=== PATIENT | female | born 2000 | race Hispanic/Latino ===

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

== ENCOUNTER 2020-05-25 19:50 | Emergency (ER) | payer OTHER ==
[~2020-05-25] VITALS: Ht 165.1 cm; Wt 113.4 kg
--- NOTE | 2020-05-25 20:13 | ER.PDOC ---
General Chief Complaint: Requesting Medical Care Stated Complaint: CHEST PAIN,SOB Time seen by MD: 20:13 Source: patient Exam Limitations: no limitations History of Present Illness Initial Comments Patient presents for evaluation of chest pain and SOB. The pain is left sided and dull, currently 5/10 severity. She has hx of anxiety and resumed her meds with no improvement. She reports that this feel different from prior panic attacks. No recent travel, no leg pain or swelling. No fever or chills. no cough. She does have uncle with hx of DVT.. Pain improves with motrin. Pain is reproducible. No trauma Severity/Quality: moderate Radiation: no radiation Activities at Onset: none Prior CP/Workup: Non-Cardiac Modifying Factors: breathing Nitro Today/Relief: No Nitro Taken Today Aspirin Today: No Aspirin Today Associated Symptoms: shortness of breath Prior symptoms/Treatment: Similar symptoms previous Allergies: Coded Allergies: amoxicillin (Verified Allergy, Severe, Rash, 09/28/16) morphine (Verified Allergy, Severe, Rash, 09/28/16) Home Meds No Active Prescriptions or Reported Meds Past Medical History Medical History: no pertinent history Surgical History: no surgical history Social History Smoking: cigarettes Alcohol Use: occassionally Drug Use: marijuana Reviewed Nursing Reviewed: Vital Signs, Abn. Noted, Nursing Assessment Constitutional: no symptoms reported EENTM: no symptoms reported Respiratory: shortness of breath Cardiovascular: chest pain Gastrointestinal: no symptoms reported Musculoskeletal: no symptoms reported Skin: no symptoms reported Psychiatric/Neurological: no symptoms reported Physical Exam HEENT: PERRL/EOMI, Normal ENT Inspection, TMs Normal, Pharynx Normal Neck: Non-Tender, Full Range of Motion, Supple, Normal Inspection Respiratory: chest non-tender, lungs clear, normal breath sounds, no respiratory distress, no accessory muscle use Cardiovascular: Normal Peripheral Pulses, Regular Rate, Rhythm, No Edema, No JVD, No Murmur, Other (reprocible left chest pain. 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, No Motor/Sensory Deficits, Alert, Normal Mood/Affect, Oriented x 3 Skin: Normal Color, Warm/Dry Results/Orders Results/Orders Orders - ZAFAR LOREDO MD Cbc With Auto Diff (05/25/20 20:21) Basic Metabolic Panel (05/25/20 20:21) Troponin I (05/25/20 20:21) D-Dimer (05/25/20 20:21) Ekg-Routine (05/25/20 20:21) Probnp B-Type Associate Financial Analyst (05/25/20 20:21) Xr Chest 1v (05/25/20 20:21) Ketorolac Tromethamine (Toradol) (05/25/20 20:21) Ketorolac Tromethamine (Toradol) (05/25/20 20:32) Cta Chest (05/25/20 21:18) Vital Signs Date Time Temp Pulse Resp B/P (MAP) Pulse Ox O2 Delivery O2 Flow Rate FiO2 05/25/20 20:16 98.2 95 22 98 05/25/20 20:16 98.2 95 22 05/25/20 20:16 98.2 95 22 98 Administered Medications Medications (Trade) Dose Ordered Sig/Krystle Route PRN Reason Start Time Stop Time Status Last Admin Dose Admin Ketorolac Tromethamine (Toradol) 30 mg STAT STAT IV 05/25/20 20:21 12 20:26 DC 05/25/20 20:44 30 MG Laboratory Tests Test 05/25/20 20:37 White Blood Count 8.1 10^3/uL (4.5-12.5) Red Blood Count 4.85 10^6/uL (4.00-5.20) Hemoglobin 15.4 g/dL (12.4-14.8) H Hematocrit 44.5 % (36.0-46.0) Mean Corpuscular Volume 91.8 fL (78-100) Mean Corpuscular Hemoglobin 31.8 pg (26-34) Mean Corpuscular Hemoglobin Concent 34.6 g/dL (33-36.5) Red Cell Distribution Width 11.6 % (11.5-14.5) Platelet Count 328 10^3/uL (150-400) Mean Platelet Volume 9.3 fL (7.8-11.0) Neutrophils (%) (Auto) 53.4 % (41.0-85.0) Lymphocytes (%) (Auto) 33.0 % (24.0-44.0) Monocytes (%) (Auto) 9.3 % (5.0-12.0) Neutrophils # (Auto) 4.3 10^3/uL (1.8-8.0) Lymphocytes # (Auto) 2.67 10^3/uL1 (1.2-5.2) Monocytes # (Auto) 0.8 10^3/uL (0.0-0.4) H Absolute Immature Granulocyte (auto 0.02 10^3 u/L (0-2) Absolute Eosinophils (auto) 0.3 10^3/uL (0.0-0.2) H Immature Granulocytes % 0.20 % (0.00-0.50) Eosinophils % 3.6 % (0.0-5.0) Basophils % 0.5 % (0.0-0.2) H Basophils # 0.0 10^3/uL (0.0-0.1) D-Dimer 0.76 mg/L (0.19-0.49) *H Sodium Level 140 mmol/L (132-145) Potassium Level 3.8 mmol/L (3.6-5.2) Chloride Level 105.0 mmol/L (96-109) Carbon Dioxide Level 26.8 mmol/L (20.0-32) Glucose Level 87 mg/dL (70-110) Blood Urea Nitrogen 13 mg/dL (7-18) Creatinine 0.77 mg/dL (0.59-1.40) Calcium Level 8.8 mg/dL (8.4-10.5) Anion Gap 12.0 Estimated GFR () 115.6 (>/=60) Est GFR (CKD-EPI)(Non-Afr Swazi) 95.6 (>/=60) BUN/Creatinine Ratio 16.0 Troponin I < 0.02 ng/mL (0.00-0.05) Pro-B-Type Natriuretic Peptide 5 pg/mL (0-125) Progress Progress Patient feels improved on repeat evaluation. Other than elevated dimer, labs OK. CTA negative for PE or other acute process. She will continue NSaids for symptomatic relief. If she has any new or worsening sx, she will return to ED, otherwise follow up with PCP in 2-3 days EKG/XRAY/CT/US EKG: NSR ER DEPART Departure Time of Disposition: 23:01 Disposition: 01 HOME, SELF-CARE Impression: Primary Impression: Chest pain Condition: Stable Referrals: PCP,UNKNOWN (PCP) PRIMARY CARE PROVIDER Scripts No Active Prescriptions or Reported Meds Duration or Time Spent with Pa: 15m ZAFAR LOREDO MD May 25, 2020 20:13
[2020-05-25 20:16] VITALS: BP 120/65
[2020-05-25] MEDS ORDERED: TORADOL IV STA (20:21)
[2020-05-25] MEDS ORDERED: TORADOL ONE (20:32)
[2020-05-25 20:46] LABS: BASOPHIL % 0.5 % (0.0-0.2); EOSINOPHIL # 0.3 10^3/uL (0.0-0.2); EOSINOPHIL % 3.6 % (0.0-5.0); LYMPHOCYTES # 2.67 10^3/uL1 (1.2-5.2); MEAN CORP HGB 31.8 pg (26-34); MONOCYTES # 0.8 10^3/uL (0.0-0.4); MONOCYTES % 9.3 % (5.0-12.0); NEUTROPHIL # 4.3 10^3/uL (1.8-8.0); NEUTROPHILS % 53.4 % (41.0-85.0); PLATELET COUNT 328 10^3/uL (150-400); RED CELL DISTRIBUTION WIDTH 11.6 % (11.5-14.5)
--- NOTE | 2020-05-25 20:50 | PCM.EKG ---
[facility] Test Date: 2020-05-25 Test Time: 20:46:56 Pat Name: KENJI GARCIA Department: Room: Gender: F [employer]: COBY : 2000 Requested By: ZAFAR LOREDO Order Number: [id number] Reading MD: Measurements Intervals [place] Rate: 95 P: 53 NV: 135 QRS: 13 QRSD: 88 T: 38 QT: 336 QTc: 423 Interpretive Statements Sinus rhythm Baseline wander in lead(s) I,III,aVL,V2,V3,V5 No previous ECG available for comparison Please click the below link to view image of tracing.
--- NOTE | 2020-05-25 20:52 | DIREP ---
PROCEDURE:CHEST 1 VIEW COMPARISON:None. INDICATIONS:chest pain FINDINGS: LUNGS/PLEURA:No significant pulmonary parenchymal abnormalities. No effusions. VASCULATURE:Normal. Unremarkable pulmonary vasculature. CARDIAC:Normal. No cardiac silhouette abnormality or cardiomegaly. MEDIASTINUM:Normal. No visible mass or adenopathy. BONES:Normal. No fracture or visible bony lesion. OTHER:Negative. CONCLUSION:Normal chest examination. Dictated by: Rios Newman M.D. on 05/25/2020 at 08:50 PM
[2020-05-25 21:07] LABS: CALCIUM 8.8 mg/dL (8.4-10.5); CARBON DIOXIDE 26.8 mmol/L (20.0-32); GLUCOSE 87 mg/dL (70-110)
--- NOTE | 2020-05-25 22:25 | NUR ---
CT PATIENT BACK FROM CT AT THIS TIME, RECONNECTED TO BEDSIDE MONITOR.
--- NOTE | 2020-05-25 22:49 | DIREP ---
PROCEDURE:CT PULMONARY ANGIOGRAM TECHNIQUE:Following the intravenous administration of contrast material, axial cuts were obtained through the chest. Sagittal and coronal MIP post-processing reconstructions are provided. Satisfactory pulmonary arterial contrast opacification was achieved. The images were viewed at lung and soft tissue settings. COMPARISON:[facility], , XRAY CHEST SINGLE VW, 05/25/2020, 08:40 PM. INDICATIONS:chest pain FINDINGS: PULMONARY ARTERIES:Patent. LUNGS:No significant pulmonary parenchymal abnormalities. Mild atelectasis dependent right lower lobe. CARDIAC:Normal size heart and normal pulmonary vascularity. THYROID:Normal. THORACIC AORTA:Normal. MEDIASTINUM:Normal. PLEURA:Normal. BONES:Normal. OTHER:No additional findings. CONCLUSION: 1. Negative for pulmonary embolism. 2. Mild atelectasis in the right lung. Otherwise clear lungs. Dictated by: Brandon Ritchie M.D. on 05/25/2020 at 10:44 PM
== END 2020-05-25 23:35 | disposition home or self-care (01) ==
LOC: ER 20:00
DX: R07.9 Chest pain, unspecified (principal); R06.02 Shortness of breath; F17.210 Nicotine dependence, cigarettes, uncomplicated; Z79.1 Long term (current) use of non-steroidal anti-inflammatories (NSAID); Z88.5 Allergy status to narcotic agent; Z88.0 Allergy status to penicillin
CPT/HCPCS: 36415; 71045; 71275; 80048; 83880; 84484; 85025; 85379; 93005; 96374; 99285; J1885; Q9965

== ENCOUNTER 2020-06-27 20:31 | Emergency (ER) | payer OTHER ==
[~2020-06-27] VITALS: Ht 165.1 cm; Wt 104.3 kg
[2020-06-27 20:37] VITALS: BP 116/67
[2020-06-27 20:56] LABS: BASOPHIL # 0.1 10^3/uL (0.0-0.1); BASOPHIL % 0.6 % (0.0-0.2); EOSINOPHIL # 0.4 10^3/uL (0.0-0.2); EOSINOPHIL % 3.6 % (0.0-5.0); LYMPHOCYTES # 3.28 10^3/uL1 (1.2-5.2); LYMPHOCYTES % 34.2 % (24.0-44.0); MEAN CORP HGB 31.9 pg (26-34); MONOCYTES # 0.8 10^3/uL (0.0-0.4); MONOCYTES % 8.6 % (5.0-12.0); NEUTROPHIL # 5.1 10^3/uL (1.8-8.0); NEUTROPHILS % 52.9 % (41.0-85.0); PLATELET COUNT 333 10^3/uL (150-400); RED CELL DISTRIBUTION WIDTH 11.6 % (11.5-14.5)
--- NOTE | 2020-06-27 21:04 | DIREP ---
PROCEDURE:CHEST 1 VIEW COMPARISON:[facility], CR, XRAY CHEST SINGLE VW, 05/25/2020, 08:40 PM. INDICATIONS:Chest pain FINDINGS: LUNGS/PLEURA:No significant pulmonary parenchymal abnormalities. No effusions. VASCULATURE:Normal. Unremarkable pulmonary vasculature. CARDIAC:Normal. No cardiac silhouette abnormality or cardiomegaly. MEDIASTINUM:Normal. No visible mass or adenopathy. BONES:Normal. No fracture or visible bony lesion. OTHER:Negative. CONCLUSION:No acute disease. No significant change has occurred. Dictated by: Vamshi Saucedo MD on 06/27/2020 at 09:01 PM
--- NOTE | 2020-06-27 21:24 | NUR ---
D-DIMER D-DIMER 1.17, EDP NOTIFIED
[2020-06-27] MEDS ORDERED: TORADOL ONE (21:25)
[2020-06-27] MEDS: TORADOL IM STA (21:29)
--- NOTE | 2020-06-27 21:32 | ER.PDOC ---
General Chief Complaint: Chest Pain-Non Cardiac Nature Stated Complaint: CHEST PAIN Time seen by MD: 21:27 Source: patient Exam Limitations: no limitations History of Present Illness Initial Comments Chest pain for about 1 Month, patient was seen here about a Month ago for same and had a negative work up including CTA Chest. Pain is located in the mid ster num and does not radiate. Timing/Duration: intermittent Severity/Quality: sharp Radiation: no radiation Activities at Onset: none Prior CP/Workup: No Prior Chest Pain Nitro Today/Relief: No Nitro Taken Today Aspirin Today: No Aspirin Today Associated Symptoms: denies symptoms Prior symptoms/Treatment: Similar symptoms previous, Recenly Seen, Treated by Doctor Allergies: Coded Allergies: amoxicillin (Verified Allergy, Severe, Rash, 09/28/16) morphine (Verified Allergy, Severe, Rash, 09/28/16) Home Meds No Active Prescriptions or Reported Meds Past Medical History Medical History: no pertinent history Surgical History: no surgical history Family History Significant Family History: no pertinent family hx Social History Alcohol Use: occassionally Drug Use: none Constitutional: no symptoms reported EENTM: no symptoms reported Respiratory: no symptoms reported Cardiovascular: see HPI Gastrointestinal: no symptoms reported Genitourinary: no symptoms reported All Other Systems: Reviewed and Negative Physical Exam General Appearance: No Apparent Distress, WD/WN Neck: Non-Tender, Full Range of Motion, Supple, Normal Inspection Respiratory: chest non-tender, lungs clear, normal breath sounds, no respiratory distress, no accessory muscle use, other (tenderness mid sternum.) Cardiovascular: Normal Peripheral Pulses, Regular Rate, Rhythm, No Edema, No Gallop, No JVD, No Murmur Gastrointestinal: Normal Bowel Sounds, No Organomegaly, No Pulsatile Mass, Non Tender, Soft Extremities: Normal Range of Motion, Non-Tender, Normal Inspection, No Pedal Edema, No Calf Tenderness, Normal Capillary Refill 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, No Motor/Sensory Deficits, Alert, Normal Mood/Affect, Oriented x 3 Skin: Normal Color, Warm/Dry Lymphatic: No Adenopathy Results/Orders Results/Orders Orders - GURPREET GUADALUPE MD Cbc With Auto Diff (06/27/20 20:41) Creatine Kinase (06/27/20 20:41) Troponin I (06/27/20 20:41) D-Dimer (06/27/20 20:41) Xr Chest 1v (06/27/20 20:41) Ekg-Routine (06/27/20 20:41) Basic Metabolic Panel (06/27/20 20:41) Ketorolac Tromethamine (Toradol) (06/27/20 21:12) Ketorolac Tromethamine (Toradol) (06/27/20 21:25) Vital Signs Date Time Temp Pulse Resp B/P (MAP) Pulse Ox O2 Delivery O2 Flow Rate FiO2 06/27/20 21:40 98.1 94 16 120/79 (93) 97 Room Air 06/27/20 20:37 98.1 102 16 116/67 (83) 96 Room Air 06/27/20 20:37 98.1 102 16 06/27/20 20:37 98.1 102 16 96 Administered Medications Medications (Trade) Dose Ordered Sig/Krystle Route PRN Reason Start Time Stop Time Status Last Admin Dose Admin Ketorolac Tromethamine (Toradol) 60 mg STAT STAT IM 06/27/20 21:12 06/27/20 21:13 DC 06/27/20 21:29 60 MG Laboratory Tests Test 06/27/20 20:50 White Blood Count 9.6 10^3/uL (4.5-12.5) Red Blood Count 4.73 10^6/uL (4.00-5.20) Hemoglobin 15.1 g/dL (12.4-14.8) H Hematocrit 42.8 % (36.0-46.0) Mean Corpuscular Volume 90.5 fL (78-100) Mean Corpuscular Hemoglobin 31.9 pg (26-34) Mean Corpuscular Hemoglobin Concent 35.3 g/dL (33-36.5) Red Cell Distribution Width 11.6 % (11.5-14.5) Platelet Count 333 10^3/uL (150-400) Mean Platelet Volume 9.2 fL (7.8-11.0) Neutrophils (%) (Auto) 52.9 % (41.0-85.0) Lymphocytes (%) (Auto) 34.2 % (24.0-44.0) Monocytes (%) (Auto) 8.6 % (5.0-12.0) Neutrophils # (Auto) 5.1 10^3/uL (1.8-8.0) Lymphocytes # (Auto) 3.28 10^3/uL1 (1.2-5.2) Monocytes # (Auto) 0.8 10^3/uL (0.0-0.4) H Absolute Immature Granulocyte (auto 0.01 10^3 u/L (0-2) Absolute Eosinophils (auto) 0.4 10^3/uL (0.0-0.2) H Immature Granulocytes % 0.10 % (0.00-0.50) Eosinophils % 3.6 % (0.0-5.0) Basophils % 0.6 % (0.0-0.2) H Basophils # 0.1 10^3/uL (0.0-0.1) D-Dimer 1.17 mg/L (0.19-0.49) *H Sodium Level 143 mmol/L (132-145) Potassium Level 3.6 mmol/L (3.6-5.2) Chloride Level 105.0 mmol/L (96-109) Carbon Dioxide Level 26.0 mmol/L (20.0-32) Glucose Level 98 mg/dL (70-110) Blood Urea Nitrogen 13 mg/dL (7-18) Creatinine 0.99 mg/dL (0.59-1.40) Calcium Level 10.3 mg/dL (8.4-10.5) Anion Gap 15.6 Estimated GFR () 86.5 (>/=60) Est GFR (CKD-EPI)(Non-Afr [place]ican) 71.5 (>/=60) BUN/Creatinine Ratio 13.0 Total Creatine Kinase 115 U/L (26-192) Troponin I 0.02 ng/mL (0.00-0.05) Progress Progress D dimer elevated but patient had a CTA chest 1 Month ago. Pain resolved with Toradol. Rest of labs are unremarkable. EKG/XRAY/CT/US EKG: NSR, no ST T wave changes EKG Comments: rate 94, normal axis XRAY: chest (No active disease) ER DEPART Departure Time of Disposition: 22:27 Disposition: 01 HOME, SELF-CARE Impression: Primary Impression: Tenderness of chest wall Condition: Improved Referrals: PCP,UNKNOWN (PCP) PRIMARY CARE PROVIDER Additional Instructions: Diclofenac F/U with your PCP in 2-3 days Return to ED if worsening or concerns Scripts No Active Prescriptions or Reported Meds Duration or Time Spent with Pa: 60 min GURPREET GUADALUPE MD Jun 27, 2020 21:32
[2020-06-27 21:40] VITALS: BP 120/79
[2020-06-27 21:57] LABS: CALCIUM 10.3 mg/dL (8.4-10.5)
--- NOTE | 2020-06-30 13:18 | PCM.EKG ---
[facility] Test Date: 2020-06-27 Test Time: 20:40:28 Pat Name: KENJI GARCIA Department: Room: Gender: F Medical Equipment Sales: GARRY : 2000 Requested By: GURPREET GUADALUPE Order Number: [id number] Reading MD: Measurements Intervals [place] Rate: 94 P: 43 ND: 137 QRS: 16 QRSD: 89 T: 18 QT: 352 QTc: 441 Interpretive Statements Sinus rhythm Compared to ECG 05/25/2020 20:46:56 No significant changes Please click the below link to view image of tracing.
== END 2020-06-27 22:47 | disposition home or self-care (01) ==
LOC: ER 20:31
DX: R07.89 Other chest pain (principal); Z79.1 Long term (current) use of non-steroidal anti-inflammatories (NSAID); Z88.0 Allergy status to penicillin; Z88.5 Allergy status to narcotic agent
CPT/HCPCS: 36415; 71045; 80048; 82550; 84484; 85025; 85379; 93005; 96372; 99285; J1885

== ENCOUNTER 2020-09-13 21:13 | Emergency (ER) | payer OTHER ==
[~2020-09-13] VITALS: Ht 165.1 cm; Wt 124.7 kg
[2020-09-13 21:48] VITALS: BP 151/68
--- NOTE | 2020-09-13 21:57 | ER.PDOC ---
General Chief Complaint: Requesting Medical Care Stated Complaint: LEO IN ABDOMINAL WALL TRAVEL OUT OF US: No Time seen by MD: 21:54 Source: patient Exam Limitations: no limitations History of Present Illness Initial Comments Leo buried in left abdominal wall this evening. She is complaining of pain. Severity: moderate Associated Symptoms: denies symptoms Allergies: Coded Allergies: amoxicillin (Verified Allergy, Severe, Rash, 09/28/16) morphine (Verified Allergy, Severe, Rash, 09/28/16) Home Meds No Active Prescriptions or Reported Meds Past Medical History Medical History: no pertinent history Surgical History: no surgical history Family History Significant Family History: no pertinent family hx Social History Smoking: non-smoker Drug Use: none Review of Systems Constitutional: no symptoms reported EENTM: no symptoms reported Respiratory: no symptoms reported Cardiovascular: no symptoms reported Gastrointestinal: see HPI All Other Systems: Reviewed and Negative Physical Exam General Appearance: No Apparent Distress, WD/WN Neck: Non-Tender, Full Range of Motion, Supple, Normal Inspection Respiratory: chest non-tender, lungs clear, normal breath sounds, no respiratory distress CVS: reg rate & rhythm, no murmur, no gallop, pulses nml, nml capillary refill Gastrointestinal: Normal Bowel Sounds, No Organomegaly, No Pulsatile Mass, Tenderness, Other (fish hook burried in left abdominal wall and hanging.) Back: Normal Inspection Extremities: Normal Range of Motion, Non-Tender, Normal Inspection 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 Area prepped and draped in sterile fashion. Anesthesia achieved 1% lidocaine. Incision done and fishhook removed without any complication. Laceration sutured. ED LACERATION WOUND REPAIR # of Wounds/Lacerations Presen: 1 Wound Location & Length (Requi: abdominal wall Wound Length (cm): 1 Anesthesia: 1% Lidocaine Volume Anesthetic (ccs): 20 Wound's Depth, Shape: linear Irrigated w/ Saline (ccs): 20 Wound Repaired With: sutures Suture Size/Type: 4:0, ethilon Suture Style: interupted Number of Sutures: 1 Sterile Dressing Applied?: Yes Results/Orders Results/Orders Orders - GURPREET GUADALUPE MD Xr Abd 1v (4/3/21 21:52) Lidocaine Hcl (Lidocaine 1% Vial) (09/13/20 21:58) Vital Signs Date Time Temp Pulse Resp B/P (MAP) Pulse Ox O2 Delivery O2 Flow Rate FiO2 09/13/20 21:48 97.8 99 16 09/13/20 21:48 97.8 99 16 98 09/13/20 21:48 97.8 99 16 151/68 (95) 98 Room Air ER DEPART Departure Time of Disposition: 22:36 Disposition: 01 HOME, SELF-CARE Impression: Primary Impression: Foreign body of abdominal wall Condition: Improved Referrals: PCP,UNKNOWN (PCP) PRIMARY CARE PROVIDER Additional Instructions: Keflex Apply Neosporin to wound daily Remove suture in 7 days at your PCP or ED Scripts No Active Prescriptions or Reported Meds Duration or Time Spent with Pa: 20 min Problem Qualifiers Primary Impression: Foreign body of abdominal wall Encounter type: initial encounter Qualified Codes: S30.851A - Superficial foreign body of abdominal wall, initial encounter GURPREET GUADALUPE MD Sep 13, 2020 21:56
[2020-09-13] MEDS ORDERED: LIDOCAINE 1% VIAL ONE (21:58)
[2020-09-13 22:34] VITALS: BP 125/70
[2020-09-13] MEDS ORDERED: TRIPLE ANTIBIOTIC OINTMENT TP ONE (22:34)
--- NOTE | 2020-09-13 22:38 | NUR ---
ABX OINTMENT TO 1 STICH MID ABDOMEN. SECURED WITH 2 X 2 AND SILK TAPE. PT PENDING DC INSTRUCTIONS.
[2020-09-13 22:45] VITALS: BP 125/77
== END 2020-09-13 22:45 | disposition home or self-care (01) ==
LOC: ER 21:13
DX: S30.851A Superficial foreign body of abdominal wall, initial encounter (principal); Z88.0 Allergy status to penicillin; Z88.5 Allergy status to narcotic agent; W45.8XXA Other foreign body or object entering through skin, initial encounter; Y93.89 Activity, other specified; Y92.89 Other specified places as the place of occurrence of the external cause; Y99.8 Other external cause status
CPT/HCPCS: 10120; 99285; J2001

== ENCOUNTER → 2021-05-21 | Outpatient (CLI) | payer OTHER ==
[2021-05-21 16:45] LABS: MEAN CORP HGB 31.9 pg (26-34); RED CELL DISTRIBUTION WIDTH 11.8 % (11.5-14.5)
[2021-05-21 17:10] LABS: CARBON DIOXIDE 26.4 mmol/L (20.0-32)
== END | disposition home or self-care (01) ==
LOC: LAB 16:16
PROVIDERS: ATTEND Nurse Practitioner Family
DX: I10 Essential (primary) hypertension (principal); D64.9 Anemia, unspecified; N91.2 Amenorrhea, unspecified; Z80.8 Family history of malignant neoplasm of other organs or systems
CPT/HCPCS: 36415; 80053; 80061; 84439; 84443; 84703; 85027